=== PATIENT | female | born 1960 | race Caucasian/White ===

== ENCOUNTER → 2024-02-14 | Outpatient (CLI) | payer BC ==
[2024-02-14 10:28] LABS: CREATININE 0.8 mg/dL (0.5-1.0); POTASSIUM 4.3 mmol/L (3.5-5.1)
== END | disposition home or self-care (01) ==
LOC: LAB 08:59
PROVIDERS: ATTEND Family Medicine
DX: M21.372 Foot drop, left foot (principal)
CPT/HCPCS: 36415; 80048

== ENCOUNTER → 2024-03-20 | Outpatient (CLI) | payer BC ==
--- NOTE | 2024-03-20 15:42 | HMCIMG ---
US VENOUS DOPPLER UNILATERAL REASON: other specified soft tissue disorders COMPARISON: None Technique: Right venous doppler ultrasound was performed with spectral analysis and color flow imaging technique. FINDINGS: There is a normal appearance of the common femoral, deep femoral, the profunda femoris and popliteal veins. Proximal calf veins appear normal as well. There is normal response to compression and augmentation. There is no evidence of deep venous thrombosis. IMPRESSION: Normal right lower extremity venous Doppler ultrasound.
--- NOTE | 2024-03-20 15:44 | HMCIMG ---
US ARTERIAL UNILA LOW EXT DUPL REASON: other specified soft tissue disorders COMPARISON: None TECHNIQUE: Left lower extremity arterial Doppler vascular evaluation was performed using spectral analysis and color flow imaging. FINDINGS: There are triphasic waveforms common femoral artery through the popliteal artery. Posterior tibial artery is biphasic, anterior tibial and dorsalis pedis arteries are triphasic. Flow velocities are preserved throughout. IMPRESSION: 1. No evidence of arterial inflow occlusion in the left lower extremity.
== END | disposition home or self-care (01) ==
LOC: RAH 13:53
PROVIDERS: ATTEND Family Medicine
DX: R23.0 Cyanosis (principal); M79.89 Other specified soft tissue disorders
CPT/HCPCS: 93926; 93971